=== PATIENT | female | born 1950 | race Caucasian/White ===

== ENCOUNTER 2020-01-22 13:11 | Outpatient (CLI) | payer MEDICARE, MEDICAID ==
[~2020-01-22 13:11] MED LIST: CEPH-571 PO; CEPH750C9 PO; ESCI20TA45 PO; HYDR-3686 PO; NAPR-1154 PO; QUET200T5 PO
[2020-01-22 13:47] LABS: HEMATOCRIT 40.1 % (35.0-45.0); WHITE BLOOD COUNT 1.9 X10'3 (4.5-11.0)
[2020-01-22 13:49] LABS: HEMOGLOBIN 13.1 g/dl (12.0-16.0); MEAN CORPUSCULAR HEMOGLOBIN 28.6 PG (27.0-31.0); MEAN CORPUSCULAR HGB CONC 32.7 g/dL (33.0-36.5); MEAN CORPUSCULAR VOLUME 87.5 FL (78-98); MEAN PLATELET VOLUME 8.4 FL (7.4-10.4); PLATELET COUNT 230 X10'3 (140-440); RED BLOOD COUNT 4.59 X10'6 (4.20-5.60); RED CELL DISTRIBUTION WIDTH 13.6 % (11.5-14.5)
[2020-01-22 14:15] LABS: TOTAL CELLS COUNTED 100
[2020-01-22 14:16] LABS: PLATELET ESTIMATE NORMAL
== END 2020-01-22 23:59 | disposition home or self-care (01) ==
LOC: LAB 13:11
PROVIDERS: ATTEND Psychiatry & Neurology Psychiatry
DX: F20.9 Schizophrenia, unspecified (principal); Z51.81 Encounter for therapeutic drug level monitoring
CPT/HCPCS: 36415; 85007; 85025

== ENCOUNTER 2022-10-24 22:39 | Emergency (ER) | payer MEDICARE, MEDICAID ==
[~2022-10-24] VITALS: Ht 160 cm; Wt 66.0 kg
[~2022-10-24 22:39] MED LIST changes: +ESCI20TA39 PO; -ESCI20TA45 PO
--- NOTE | 2022-10-25 00:47 | NUR ---
pt wellington upgraded to level 3 due to complaint.
[2022-10-25 00:59] LABS: BASOPHILS # (AUTO) 0.1 X10'3 (0-0.2); EOSINOPHILS # (AUTO) 0.1 X10'3 (0-0.9); EOSINOPHILS % (AUTO) 1.2 % (0-6); HEMOGLOBIN 12.3 g/dl (12.0-16.0); LYMPHOCYTES # (AUTO) 2.5 X10'3 (1.1-4.8); LYMPHOCYTES % (AUTO) 28.5 % (21-51); MEAN CORPUSCULAR HEMOGLOBIN 29.6 PG (27.0-31.0); MEAN CORPUSCULAR HGB CONC 33.1 g/dL (33.0-36.5); MEAN CORPUSCULAR VOLUME 89.3 FL (78-98); MEAN PLATELET VOLUME 7.8 FL (7.4-10.4); MONOCYTES # (AUTO) 0.8 X10'3 (0-0.9); MONOCYTES % (AUTO) 9.4 % (2-12); NEUTROPHILS # (AUTO) 5.2 X10'3 (1.8-7.7); NEUTROPHILS % (AUTO) 59.9 % (42-75); PLATELET COUNT 284 X10'3 (140-440); RED BLOOD COUNT 4.14 X10'6 (4.20-5.60); RED CELL DISTRIBUTION WIDTH 14.8 % (11.5-14.5); WHITE BLOOD COUNT 8.6 X10'3 (4.5-11.0)
[2022-10-25] MEDS ORDERED: NO HOME MEDS (01:01)
[2022-10-25 01:15] LABS: ALANINE AMINOTRANSFERASE 16 U/L (12-78); ALBUMIN 3.2 G/DL (3.4-5.0); ALBUMIN/GLOBULIN RATIO 0.8 (1.1-1.5); ALKALINE PHOSPHATASE 59 IU/L (46-116); ANION GAP 3 (8-16); ASPARTATE AMINO TRANSFERASE 14 U/L (10-37); BILIRUBIN,TOTAL 0.5 MG/DL (0.1-1.0); BLOOD UREA NITROGEN 13 MG/DL (7-18); BUN/CREATININE RATIO 11.3 (10.0-20.0); CALCIUM 9.1 MG/DL (8.5-10.1); CHLORIDE 101 MMOL/L (99-107); CREATININE 1.15 MG/DL (0.40-0.90); GLUCOSE 136 MG/DL (70-104); LIPASE 114 U/L (73-393); POTASSIUM 3.4 MMOL/L (3.5-5.1); SODIUM 137 MMOL/L (135-145); eGFR 47 ML/MIN
[2022-10-25] MEDS ORDERED: POTASSIUM BICARB 20meq eff tab 20 MEQ TABLET.EFF PO ONE (01:55)
[2022-10-25] MEDS ORDERED: loperamide 2mg capsule PO ONE (01:55)
[2022-10-25 02:25] LABS: COLOR,URINE AMBER (Yellow); GLUCOSE, URINE NEGATIVE (Neg); KETONES,URINE TRACE mg/dl (Neg); LEUKOCYTE ESTERASE ,URINE NEGATIVE (Neg); NITRITES, URINE NEGATIVE (Neg); OCCULT BLOOD,URINE TRACE-INTACT (Neg); PROTEIN,URINE NEGATIVE (Neg)
[2022-10-25 02:52] LABS: CLARITY,URINE SLIGHTLY CLOUDY (Clear); UA COLLECTION TYPE CLN CATCH MIDSTREAM
[2022-10-25 02:54] LABS: BACTERIA,URINE FEW /HPF (Neg); HYALINE CASTS 0-3 /LPF (NEGATIVE); RBC,URINE 0-2 /HPF (0-2); SQUAMOUS EPITHELIAL CELL,UR FEW /LPF (FEW); TRANSITIONAL EPI CELLS,URINE FEW /HPF; WBC,URINE 0-4 /HPF (0-4)
[2022-10-25] MEDS ORDERED: LOPE2CAP PO (03:28)
[2022-10-25 05:57] VITALS: BP 97/41
== END 2022-10-25 06:02 | disposition home or self-care (01) ==
LOC: ER 22:40
DX: R19.7 Diarrhea, unspecified (principal); I10 Essential (primary) hypertension; F31.9 Bipolar disorder, unspecified; F15.20 Other stimulant dependence, uncomplicated; Z88.0 Allergy status to penicillin; Z91.040 Latex allergy status
CPT/HCPCS: 36415; 74176; 80053; 81001; 83690; 84145; 85025; 99285

== ENCOUNTER 2022-10-27 12:48 | Emergency (ER) | payer MEDICARE, MEDICAID ==
[~2022-10-27 12:48] MED LIST changes: -CEPH-571 PO; -CEPH750C9 PO; -ESCI20TA39 PO; -HYDR-3686 PO; +LOPE2CAP PO; -NAPR-1154 PO; +NO HOME MEDS; -QUET200T5 PO
== END 2022-10-27 13:40 | disposition left against medical advice (07) ==
LOC: ER 12:48
DX: T73.0XXA Starvation, initial encounter (principal); Z53.21 Procedure and treatment not carried out due to patient leaving prior to being seen by health care provider; X58.XXXA Exposure to other specified factors, initial encounter

== ENCOUNTER 2022-11-18 14:00 | Emergency (ER) | payer MEDICARE, MEDICAID ==
[~2022-11-18] VITALS: Ht 160 cm; Wt 5.5 kg
[2022-11-18 14:06] VITALS: BP 101/57
== END 2022-11-18 18:27 | disposition home or self-care (01) ==
LOC: ER 14:00
DX: R19.7 Diarrhea, unspecified (principal); I10 Essential (primary) hypertension; F31.9 Bipolar disorder, unspecified; F20.9 Schizophrenia, unspecified; F15.10 Other stimulant abuse, uncomplicated; Z88.0 Allergy status to penicillin; Z91.040 Latex allergy status; Z79.899 Other long term (current) drug therapy
CPT/HCPCS: 99283

== ENCOUNTER 2022-11-19 19:30 | Emergency (ER) | payer MEDICARE, MEDICAID ==
[~2022-11-19] VITALS: Ht 160 cm; Wt 69.1 kg
[2022-11-19 20:30] LABS: BASOPHILS # (AUTO) 0.1 X10'3 (0-0.2); BASOPHILS % (AUTO) 0.8 % (0-1); EOSINOPHILS # (AUTO) 0.2 X10'3 (0-0.9); HEMATOCRIT 37.6 % (35.0-45.0); HEMOGLOBIN 12.4 g/dl (12.0-16.0); LYMPHOCYTES # (AUTO) 2.2 X10'3 (1.1-4.8); LYMPHOCYTES % (AUTO) 23.9 % (21-51); MEAN CORPUSCULAR HEMOGLOBIN 29.6 PG (27.0-31.0); MEAN CORPUSCULAR HGB CONC 33.1 g/dL (33.0-36.5); MEAN CORPUSCULAR VOLUME 89.6 FL (78-98); MEAN PLATELET VOLUME 7.8 FL (7.4-10.4); MONOCYTES # (AUTO) 0.8 X10'3 (0-0.9); MONOCYTES % (AUTO) 8.8 % (2-12); NEUTROPHILS # (AUTO) 5.9 X10'3 (1.8-7.7); NEUTROPHILS % (AUTO) 64.5 % (42-75); PLATELET COUNT 312 X10'3 (140-440); WHITE BLOOD COUNT 9.2 X10'3 (4.5-11.0)
[2022-11-19 20:51] LABS: ALANINE AMINOTRANSFERASE 19 U/L (12-78); ALBUMIN 3.2 G/DL (3.4-5.0); ALBUMIN/GLOBULIN RATIO 0.9 (1.1-1.5); ALKALINE PHOSPHATASE 57 IU/L (46-116); ANION GAP 9 (8-16); ASPARTATE AMINO TRANSFERASE 19 U/L (10-37); BILIRUBIN,TOTAL 0.4 MG/DL (0.1-1.0); BLOOD UREA NITROGEN 13 MG/DL (7-18); BUN/CREATININE RATIO 12.9 (10.0-20.0); CALCIUM 9.1 MG/DL (8.5-10.1); CHLORIDE 103 MMOL/L (99-107); CREATININE 1.01 MG/DL (0.40-0.90); GLUCOSE 146 MG/DL (70-104); POTASSIUM 3.2 MMOL/L (3.5-5.1); SODIUM 139 MMOL/L (135-145); TOTAL CARBON DIOXIDE 26.8 MMOL/L (24-32); TOTAL PROTEIN 6.9 G/DL (6.4-8.2); eGFR 54 ML/MIN
[2022-11-19 21:19] LABS: ETHANOL < 0.010 GM/DL (0.0-0.010)
[2022-11-20] MEDS ORDERED: potassium Cl 20 mEq SR tablet PO STA (00:30)
--- NOTE | 2022-11-20 00:47 | NUR ---
Patient ambulatory, steady gait from Main E.D. 14 to ED OF bed 25. No distress observed. Continue to monitor.
--- NOTE | 2022-11-20 02:17 | NUR ---
Patient continues to sleep. No distress observed. Continue to monitor.
--- NOTE | 2022-11-20 04:11 | NUR ---
Patient continues to sleep. No distress observed. Continue to monitor.
--- NOTE | 2022-11-20 06:07 | NUR ---
Patient gave a urine and is now sleeping in bed, No distress observed. Continue to monitor.
[2022-11-20 06:16] LABS: CLARITY,URINE SLIGHTLY CLOUDY (Clear); GLUCOSE, URINE NEGATIVE (Neg); KETONES,URINE TRACE mg/dl (Neg); LEUKOCYTE ESTERASE ,URINE NEGATIVE (Neg); NITRITES, URINE NEGATIVE (Neg); OCCULT BLOOD,URINE NEGATIVE (Neg); PROTEIN,URINE 30 mg/dl (Neg)
[2022-11-20 06:22] LABS: URINE AMPHETAMINE SCREEN NEGATIVE (Neg); URINE BARBITUATE SCREEN NEGATIVE (Neg); URINE BENZODIAZEPINES SCREEN POSITIVE (Neg); URINE CANNABINOID SCREEN POSITIVE (Neg); URINE COCAINE SCREEN NEGATIVE (Neg); URINE METHADONE SCREEN NEGATIVE (Neg); URINE OPIATE SCREEN NEGATIVE (Neg); URINE PHENCYCLIDINE SCREEN NEGATIVE (Neg)
[2022-11-20 06:23] LABS: COLOR,URINE DARK YELLOW (Yellow); UA COLLECTION TYPE CLN CATCH MIDSTREAM
[2022-11-20 06:32] LABS: CAL OXALATE CRYSTALS 3+ /HPF (NEGATIVE)
[2022-11-20 06:33] LABS: BACTERIA,URINE NONE SEEN /HPF (Neg); RBC,URINE NONE SEEN /HPF (0-2); SQUAMOUS EPITHELIAL CELL,UR FEW /LPF (FEW); WBC,URINE NONE SEEN /HPF (0-4)
--- NOTE | 2022-11-20 08:10 | NUR ---
Patient eating breakfast. No distress observed. Continue to monitor.
--- NOTE | 2022-11-20 10:03 | NUR ---
Patient sleeping. No distress observed. Continue to monitor.
--- NOTE | 2022-11-20 11:42 | NUR ---
Patient continues to sleep. No distress observed. Continue to monitor
--- NOTE | 2022-11-20 12:35 | NUR ---
Patient eating lunch. Patient is very malodorous. Patient asked for juice. No distress observed at this time. Continue to monitor.
--- NOTE | 2022-11-20 14:35 | NUR ---
Patient ambulatory to BR, steady gait. Patient wants to leave. RN explained to patient that she is on a hold. Continue to monitor.
--- NOTE | 2022-11-20 15:47 | NUR ---
Patient sleeping. No distress observed. Continue to monitor.
--- NOTE | 2022-11-20 19:41 | NUR ---
The patient is resting on her bed. She ate 100% of her dinner. She appears disheveled. She has no plans for food, intermediate or clothing. She did know she was in [place]. [facility] reported that she was diagnoised with lewy body dementia in 2013. In 2018 she scored 11/30 on the MOCHA. She has been homeless with her son in the [place] area and staying at the [facility] but her son had a surgery and went to Rehab which left the Patient to fend for herself. She reportedly is [facility] a [facility] the [facility]. In the past she has had invega IM but not currently. She has a prior tx for depression with psychotic features. The patient does not appear to be psychotic at this time.
--- NOTE | 2022-11-20 20:26 | NUR ---
The patient appears to be sleeping
--- NOTE | 2022-11-20 22:10 | NUR ---
The patient appears to be sleeping. She periodically is up to use the bathroom
--- NOTE | 2022-11-21 00:06 | NUR ---
The patient appears to be sleeping
--- NOTE | 2022-11-21 04:06 | NUR ---
The patient appears to be sleeping
--- NOTE | 2022-11-21 05:26 | NUR ---
The patient is currently resting on her bed
--- NOTE | 2022-11-21 06:53 | NUR ---
Patient sleeping on her left side. No distress observed. Continue to monitor.
--- NOTE | 2022-11-21 08:22 | NUR ---
Patient eating breakfast. No distress observed. Continue to monitor.
--- NOTE | 2022-11-21 10:11 | NUR ---
Patient ambulatory to BR, steaady gait. No distress observed. Continue to monitor.
--- NOTE | 2022-11-21 11:45 | NUR ---
Patient came up to nurse's station and asked "When can I leave?" RN explained that she was on a hold and whe won't be able to leave for several days. Patient was not happy but went back to her bed. Continue to monitor.
--- NOTE | 2022-11-21 12:26 | NUR ---
RN gave patient her lunch tray and patient asked to leave again. RN again advised patient that she is on a hold and will be with us for a while. Continue to monitor.
--- NOTE | 2022-11-21 14:17 | NUR ---
Patient sleeping. No distress observed. Continue to monitor.
--- NOTE | 2022-11-21 16:25 | NUR ---
Patient laying down and appears to be sleeping. No distress observed. Continue to monitor.
--- NOTE | 2022-11-21 17:24 | NUR ---
Patient came up to RN and asked what she has to do to get out of here. RN explained she is on a hold and will be here for several more days. Patient asked what would happen if I walked out if 15 minutes. RN explained that a vice squad police officer would go find her and bring her back. Patient walked back to her bed. Continue to monitor.
--- NOTE | 2022-11-21 19:05 | NUR ---
The patient was resting on her bed. She is very disheveled. She ate 100% of her dinner. She is wanting to leave but has absolutely no plan for food longterm or clothing. When asked about how she would obtain food she replied, "I don't know. I don't worry about things like that" She reports voices telling her to "be good" She stated that she feels unsafe and that her life is in danger. She feels that the ER will close. She was told that she is on a 5150 hold. She presents as severely gravely disabled. Discussed with SHAILA Pickett and orders received.
[2022-11-21] MEDS ORDERED: risperiDONE 0.5mg tablet PO ONE (19:10)
[2022-11-21] MEDS: QUEtiapine 25mg tablet PO PRN (19:18)
--- NOTE | 2022-11-21 20:39 | NUR ---
The patient appears to be sleeping
--- NOTE | 2022-11-21 22:51 | NUR ---
The patient appears to be sleeping
--- NOTE | 2022-11-22 00:07 | NUR ---
The patient appears to be sleeping
--- NOTE | 2022-11-22 01:25 | NUR ---
The patient appears to be sleeping
--- NOTE | 2022-11-22 03:28 | NUR ---
The patient appears to be sleeping
--- NOTE | 2022-11-22 05:08 | NUR ---
The patient appears to be sleeping
--- NOTE | 2022-11-22 07:06 | NUR ---
Patient appears to be sleeping. No distress observed. Continue to monitor.
--- NOTE | 2022-11-22 08:27 | NUR ---
Patient eating breakfast. No distress observed. Continue to monitor.
[2022-11-22] MEDS: risperiDONE 2mg tablet PO SCH ×2 (09:04→19:20)
[2022-11-22] MEDS: QUEtiapine 25mg tablet PO PRN ×2 (09:04→19:19)
--- NOTE | 2022-11-22 10:16 | NUR ---
Patient sleeping. No distress observed. Continue to monitor.
--- NOTE | 2022-11-22 12:22 | NUR ---
Patient eating lunch. No distress observed. Continue to monitor.
--- NOTE | 2022-11-22 14:23 | NUR ---
Pt sitting up on her bed appears to be eating. No distress noted.
--- NOTE | 2022-11-22 15:00 | NUR ---
TOOK PT TO SHOWER IN THE WHEELCHAIR AND CHANGED HER LINEN. PT LOVED HER SHOWER.
--- NOTE | 2022-11-22 16:03 | NUR ---
RN speaking to patient because [facility] that she has a stomach ache and is having diarrhea. RN asked patient if she had a stomach ache and patient responded "I want a sandwich." RN asked patient not to flush next time she goes to the BR. Patient verbalized understanding.
--- NOTE | 2022-11-22 16:47 | NUR ---
RN walked to BR and RN reminded patient not to flush. RN checked the toilet which had formed stool. No diarrhea. Continue to monitor.
--- NOTE | 2022-11-22 17:22 | NUR ---
Patient eating dinner. No distress observed. Continue to monitor.
--- NOTE | 2022-11-22 19:56 | NUR ---
One to one with the patient to assess thought process. When asked why she was here she replied my eye and my stomach" She contines to report voices telling her what to do. She was asked what her plan was if she left the hospital she only replied, "the streets" She stated she did not know what she would do to obtain food. She came up to the station and asked. "Do I need to bounce my bed before I leave?" and when asked what she meant she replied if she needed to move her bed up and down. She was told that she would be here until a place was found for her and she insisted that no one was going to help her. She did state that she felt safe here. She is not really socializing with anyone and just lays on her bed.
--- NOTE | 2022-11-22 20:09 | NUR ---
The patient standing at the end of her bed shaking the foot board and anouncing that she is leaving. She was reminded she had no where to go or ability to get food and she stated, "That is why I need to go to the street so I can figure it out.
--- NOTE | 2022-11-22 21:21 | NUR ---
The patient appears to be sleeping
--- NOTE | 2022-11-22 23:12 | NUR ---
The patient appears to be sleeping
--- NOTE | 2022-11-23 01:02 | NUR ---
The patient appears to be sleeping
--- NOTE | 2022-11-23 02:38 | NUR ---
The patient appears to be sleeping
--- NOTE | 2022-11-23 03:36 | NUR ---
The patient is awake and reporting that she is hungry. Snack given
--- NOTE | 2022-11-23 05:05 | NUR ---
The patient appears to be sleeping
--- NOTE | 2022-11-23 06:30 | NUR ---
Received pt. sleeping in bed, she awoke to use the bathroom and was able to do so independently, then returned to bed.
[2022-11-23] MEDS ORDERED: risperiDONE 0.5mg tablet PO SCH (08:24)
--- NOTE | 2022-11-23 08:30 | NUR ---
Pt. is sitting up in bed eating at this time.
--- NOTE | 2022-11-23 09:00 | NUR ---
Pt. was compliant with her morning medications. She is A&O x3, however when questioned regarding why she is here stated in a disorganized manner, "Because of my stomach, my eye, and my feet." Pt. is endorsing thoughts of S/I, however denies any current plan or any past history of a suicide attempts. She appears to be depressed regarding her current situaion. When questioned regarding any A/V/ARTEAGA, pt. reported A/H which are not command in nature which, "Just talk." Pt. also reported anxiety, and PRN Seroquel was administered, will continue to monitor pt. closely.
[2022-11-23] MEDS: risperiDONE 0.5mg tablet PO SCH ×2 (09:06→19:53)
[2022-11-23] MEDS: QUEtiapine 25mg tablet PO PRN ×2 (09:06→17:17)
--- NOTE | 2022-11-23 10:31 | NUR ---
Breaking RN. Pt. is asleep on left side in bed. Respirations 16, even and unlabored.
--- NOTE | 2022-11-23 10:49 | NUR ---
Pt. appears to be sleeping at this time, head of bed is elevated, rr are even and unlabored.
--- NOTE | 2022-11-23 12:27 | NUR ---
Pt. is sitting up eating lunch at this time.
--- NOTE | 2022-11-23 14:28 | NUR ---
Pt. up to use the bathroom and afterwards approached the nurse's station stating, "I can't get out of here." This junior underwriter provided active listening and positive encouragement to pt. regarding her being safe here and we are going to help her. Pt. appeared to be confused and then stated, "I don't have a debit card." She was assured she didn't need one here. Pt. then returned back to bed, will continue to monitor pt. closely.
--- NOTE | 2022-11-23 16:40 | NUR ---
Pt. continues to sleep at this time, head of bed elevated, rise and fall of chest noted.
--- NOTE | 2022-11-23 17:10 | NUR ---
Pt. awoke and came to the nurse's station demanding to leave, she was unable to be verbally redirected by staff. Pt. had an elopement attempt out the back curtain exit. Security was called and pt. was physically escorted back to her room. PRN Seroquel was administered, however pt. remained argumentative with staff. Will continue to monitor pt. closely. Pt. was provided with a snack and coffee. She is sitting on her bed at this time, but is non-cooperative with vital signs r/t agitation. Will attempt after medication has taken effect and endorse to Noc shift.
--- NOTE | 2022-11-23 18:35 | NUR ---
The patient is resting on her bed.
--- NOTE | 2022-11-23 18:44 | NUR ---
One to one with the patient who continues to report AH. She stated the voices tell her all sorts of things was guarded when asked more details on what the voices were telling her. She denies that she has thoughts to harm herself or others. She is unable to verbalize a plan for food, snf or clothing. She was reminded that she is going to stay here until a placement can be found and she replied, "that's not what I heard" She admits the voices are telling her to leave and that she can't stay here. She was told that was not true and she seemed to accept that. She knew she was at [facility] and that the month was November.
--- NOTE | 2022-11-23 19:58 | NUR ---
The patient is sitting up and having a snack. She took her evening medications.
--- NOTE | 2022-11-23 20:59 | NUR ---
The patient appears to be sleeping
--- NOTE | 2022-11-23 23:07 | NUR ---
The pathient appears to be sleeping
--- NOTE | 2022-11-24 01:05 | NUR ---
The patient is up to use the bathroom.
--- NOTE | 2022-11-24 03:04 | NUR ---
The patient appears to be sleeping
--- NOTE | 2022-11-24 05:03 | NUR ---
The patient up to use the bathroom
--- NOTE | 2022-11-24 07:00 | NUR ---
Pt resting comfortably with eyes closed, rr even and unlabored.
[2022-11-24] MEDS: risperiDONE 0.5mg tablet PO SCH ×2 (09:10→19:17)
--- NOTE | 2022-11-24 09:13 | NUR ---
Pt sleeping when credit underwriter approached. Pt ate 100% of her breakfast. Pt was compliant with medication and care. Reports LBM this morning loose stool. Pt denies SI/HI. When asked if she hears voices pt states "nah, just one voice." Good or bad "it can be good or bad." Pt reports her mood "I'm sleepy."
--- NOTE | 2022-11-24 11:00 | NUR ---
Pt up to the bathroom, returns to bed to sleep.
--- NOTE | 2022-11-24 13:00 | NUR ---
Pt ate 100% of her lunch and another tray. Pt continues to present fatiged. Pt not responding to internal stimuli "just tired."
--- NOTE | 2022-11-24 16:00 | NUR ---
Pt resting comfortably on left side. Pt able to self position.
--- NOTE | 2022-11-24 19:09 | NUR ---
The patient is laying on her bed with her eyes closed for the majority of the time and it is unclear if she is awake or sleeping. She gives minimal replies to assessment questions. Her affect is flat and she does not give any eye contact. She makes to attempt to socialize with others. When asked she stated she did not feel well both physically and mentally. She reports continued voices telling her to leave the ER. She reports that she feels depressed. She has poor hygiene and makes no attempt at self care. She is toileting independently.
[2022-11-24] MEDS: QUEtiapine 25mg tablet PO PRN (19:17)
--- NOTE | 2022-11-24 20:26 | NUR ---
The patient appears to be sleeping
--- NOTE | 2022-11-24 22:32 | NUR ---
The patient appears to be sleeping
--- NOTE | 2022-11-25 00:01 | NUR ---
The patient appears to be sleeping
--- NOTE | 2022-11-25 01:59 | NUR ---
The patient appears to be sleeping
--- NOTE | 2022-11-25 04:02 | NUR ---
The patient appears to be sleeping
--- NOTE | 2022-11-25 05:18 | NUR ---
The patient appears to be sleeping
--- NOTE | 2022-11-25 08:00 | NUR ---
Patient awake, AOx2. Some confusion noted. Patient denies SI/HI at this time. She does not endorse AVH. Patient compliant with scheduled medication and assessment. Sitting up on the edge of bed eating breakfast at this time.
[2022-11-25] MEDS: risperiDONE 0.5mg tablet PO SCH ×2 (08:17→19:11)
--- NOTE | 2022-11-25 08:51 | NUR ---
JUST GOT BACK FROM TAKING PT TO SHOWER AND PT AMBULATED THERE JUST FINE. PT IS NOW USING MOUTHWASH AND LINENS WERE CHANGED.
--- NOTE | 2022-11-25 09:00 | NUR ---
Shower encouraged and accepted. Patient showered/linen changed. Oral care encouraged and accepted. Patient performed independently.
--- NOTE | 2022-11-25 11:00 | NUR ---
Pt resting comfortably with eyes closed, she is easily awaken. Pt asked "I want to get out of here." When told it was over 105 degrees pt responded "can I stay here." Pt describes her mood as "tired and achy." When asked about her diagnosis she said "schizophrenia," but then said "I don't know." Pt doesn't remember why she is here at [facility], but then remembered she was running around the community naked. When asked why pt responded "I don't know." Pt reports "one" voice she is hearing.
--- NOTE | 2022-11-25 13:24 | NUR ---
Pt is up to the bathroom, gait steady. Pt was ordered an extrat tray, pt reports being hungry.
--- NOTE | 2022-11-25 14:00 | NUR ---
SENT TUBE HANDLER CONSULT. Addendum: 11/25/22 at 1638 by AJ Placed order and sent page.
--- NOTE | 2022-11-25 16:15 | NUR ---
Patient was moved to bed #21. Pt compliant and calm.
--- NOTE | 2022-11-25 16:53 | NUR ---
PT'S 5150 WAS RESCINDED ON 11/22/22 BY [facility]. Per report pt does not meet criteria for 5150 hold. Pt meets criteria for GD associated with her increasing dementia symptoms.
--- NOTE | 2022-11-25 17:29 | NUR ---
Pt states "I'm having all kinds of bad feelings." "Anxious, depressed." "I want to tear up everything." Pt then asked if she could have a snack.
[2022-11-25] MEDS: QUEtiapine 25mg tablet PO PRN (17:35)
--- NOTE | 2022-11-25 17:41 | NUR ---
PRN SEROQUEL ADMINISTERED.
--- NOTE | 2022-11-25 18:30 | NUR ---
Patient received sitting in her room quietly watching television. No s/s of distress noted. Will continue to monitor.
--- NOTE | 2022-11-25 19:00 | NUR ---
Pt was receptive to 1:1 assessment and scheduled medication. She requested a Nicotine patch which was provided to her per MD order. She reported LBM this morning with no c/o constipation or diarrhea. Pt denies SI/HI, AH and VH at this time. She is calm and cooperative. Pt noted resting in her room at this time.
[2022-11-25] MEDS ORDERED: nicotine 14mg patch - 24hr TD ONE (19:05)
--- NOTE | 2022-11-25 19:46 | NUR ---
Patient had been sleeping quietly in bed when she abruptly awoke and began yelling. Patient stating that she "needs to break down the bed" and is "leaving in 15 minutes". Staff attempted to orient to reality and provide distraction/ comfort measures to help patient calm down. Pt continues to believe that she needs to leave the unit. One time order for PO Seroquel obtained from . Will continue to monitor.
[2022-11-25] MEDS ORDERED: QUEtiapine 25mg tablet PO ONE (19:50)
--- NOTE | 2022-11-25 20:07 | NUR ---
Pt is observed sleeping on her right side in bed with no s/s of distress. Respirations even, unlabored. Will continue to monitor.
--- NOTE | 2022-11-25 20:26 | NUR ---
Patient awoke and ambulated to the restroom independently. Pt asked this field underwriter if she could leave. This field underwriter encouraged pt that this is a safe place for her to stay. She reported that she would rather "go to the streets". Pt is noted sitting in her room at this time. Will continue to monitor.
--- NOTE | 2022-11-25 22:38 | NUR ---
Pt is observed sleeping supine in her bed at this time. Equal rise and fall of chest. No s/s of distress. Will continue to monitor.
--- NOTE | 2022-11-25 23:56 | NUR ---
The patient appears to be sleeping
--- NOTE | 2022-11-26 02:02 | NUR ---
Pt briefly awake to use restroom. PT concerned about paying for her stay. Staff reinforced [facility] will be taking responsibilty.Pt resumed sleeping. No distress noted.
--- NOTE | 2022-11-26 03:20 | NUR ---
Pt appears to be sleeping, eyes closed, breathing even and unlabored, no distress.
--- NOTE | 2022-11-26 05:06 | NUR ---
Pt continues to be sleep, eyes closed, breathing even and unlabored, lying supine, HOB elevated semi fowlers, no distress noted.
--- NOTE | 2022-11-26 07:00 | NUR ---
Patient resting comfortably on right side, rr even and unlabored.
--- NOTE | 2022-11-26 09:00 | NUR ---
pt compliant to AM medication regimen. pt lying in bed with eyes closed. no obvious signs of distress. pt rr even and unlabored.
[2022-11-26] MEDS ORDERED: QUEtiapine 25mg tablet PO SCH (09:10)
[2022-11-26] MEDS: nicotine 14mg patch - 24hr TD SCH (09:11)
[2022-11-26] MEDS: risperiDONE 0.5mg tablet PO SCH ×2 (09:12→20:04)
[2022-11-26] MEDS: QUEtiapine 25mg tablet PO PRN (09:13)
--- NOTE | 2022-11-26 11:23 | NUR ---
pt continues to lay in bed supine with eyes closed. RR even and unlabored.
--- NOTE | 2022-11-26 12:21 | NUR ---
Pt sitting on side of bed eating lunch. Pt is a rapid eater and required multiple requests to slow down. Pt's lungs clear with ausculation.
--- NOTE | 2022-11-26 12:53 | NUR ---
Patient having difficulty with chewing her food. Pt is anodontia and eats fast. Received order for swallow study.
--- NOTE | 2022-11-26 13:43 | NUR ---
pt observed in bed with eyes closed, RR even and unlabored. no obvious signs of distress.
--- NOTE | 2022-11-26 15:13 | NUR ---
pt continues to sleep with eyes closed, and favoring the left side. pt does not seem to be in any obvious signs of distress. RR even and unlabored.
--- NOTE | 2022-11-26 17:15 | NUR ---
pt approached nurse station requesting a snack. pt back in bed continuing to favor her left side.
--- NOTE | 2022-11-26 18:11 | NUR ---
pt ate dinner with some complicationg swallowing. pt experienced frequent coughing during meal. pt finished meal and layed down supine position. RR even and unlabored, no obvious signs of distress.
--- NOTE | 2022-11-26 18:53 | NUR ---
The patient is resting on her bed. She was pleasant during the assessment. She stated that she has been hearing voices to mess up the bed but stated she won't do it.
[2022-11-26] MEDS: QUEtiapine 25mg tablet PO SCH (20:04)
--- NOTE | 2022-11-26 20:11 | NUR ---
The patient is resting on her bed.
--- NOTE | 2022-11-26 21:57 | NUR ---
The patient appears to be sleeping
--- NOTE | 2022-11-26 23:21 | NUR ---
The patient appears to be sleeping
--- NOTE | 2022-11-27 01:08 | NUR ---
The patient appears to be sleeping
--- NOTE | 2022-11-27 02:54 | NUR ---
The patient appears to be sleeping
--- NOTE | 2022-11-27 05:05 | NUR ---
The patient awake to use the bathroom and on her way back to bed she asked if it was okay to start breaking the beds. She was redirectable and reminded not to listen to the voices.
--- NOTE | 2022-11-27 06:41 | NUR ---
Patient supine and appears to be sleeping. No distress observed. Continue to monitor.
[2022-11-27] MEDS: risperiDONE 0.5mg tablet PO SCH ×2 (08:20→20:07)
--- NOTE | 2022-11-27 08:20 | NUR ---
Patient eating breakfast. No distress observed. Continue to monitor.
[2022-11-27] MEDS: nicotine 14mg patch - 24hr TD SCH (08:21)
[2022-11-27] MEDS: QUEtiapine 25mg tablet PO SCH ×3 (08:21→20:08)
--- NOTE | 2022-11-27 08:50 | NUR ---
Speech therapist evaluating patient. Patient has not problem swallowing. Continue to monitor.
--- NOTE | 2022-11-27 11:03 | NUR ---
Patient sleeping. No distress observed. Patient moved to bed 25 in the bed. Continue to monitor.
--- NOTE | 2022-11-27 12:36 | NUR ---
Patient eating lunch. No distress observed. Continue to monitor.
--- NOTE | 2022-11-27 14:31 | NUR ---
Pt resting on her bed appears to be sleeping. No distress noted.
--- NOTE | 2022-11-27 15:04 | NUR ---
Patient sleeping. No distress observed. Continue to monitor.
--- NOTE | 2022-11-27 16:55 | NUR ---
RN gave patient a snack of milk and chuck crackers. No distress observed. Continue to monitor
--- NOTE | 2022-11-27 19:27 | NUR ---
The patient is resting on her bed. She reports voices telling her to "break down beds" she reports she feels depressed and having suicidal thoughts to "choke myself"
--- NOTE | 2022-11-27 20:30 | NUR ---
The patient appears to be sleeping
--- NOTE | 2022-11-27 21:13 | NUR ---
The patient appears to be sleeping
--- NOTE | 2022-11-27 23:02 | NUR ---
The patient appears to be sleeping
--- NOTE | 2022-11-28 01:04 | NUR ---
The patient appears to be sleeping
--- NOTE | 2022-11-28 02:47 | NUR ---
The patient appears to be sleeping
--- NOTE | 2022-11-28 05:13 | NUR ---
The patient appeared to have slept well during the night
--- NOTE | 2022-11-28 06:53 | NUR ---
The patient appears to be sleeping
--- NOTE | 2022-11-28 07:36 | NUR ---
Patient sleeping on left side. Respirations are even and nonlabored.
--- NOTE | 2022-11-28 08:55 | NUR ---
Patient continues to sleep in bed. No s/s of distress.
[2022-11-28] MEDS: QUEtiapine 25mg tablet PO SCH ×2 (10:59→13:00)
[2022-11-28] MEDS: nicotine 14mg patch - 24hr TD SCH (11:00)
[2022-11-28] MEDS: risperiDONE 0.5mg tablet PO SCH ×2 (11:00→19:05)
--- NOTE | 2022-11-28 11:44 | NUR ---
Patient awoke and took her medications without incident. Patient ate her breakfast and is back sleeping at this time. Patient is disheveled and has poor hygeine.
--- NOTE | 2022-11-28 14:55 | NUR ---
Patient up to the bathroom, then back to bed. Patient has been sleeping all day except for meal times. Held 13:00 Seroquel for oversedation.
--- NOTE | 2022-11-28 16:46 | NUR ---
Patient continues to sleep in bed. Respirations are even and nonlabored.
--- NOTE | 2022-11-28 18:06 | NUR ---
The patient has been somulent during the day. Discussed with Dr. Donohue and TID secheduled Seroquel discontinued.
--- NOTE | 2022-11-28 18:47 | NUR ---
The patient resting on her bed. She is complaining of feeling too tired. She stated that she is hearing voices "all the time. Telling me to tear down beds. Just things like thought. She stated her mood is good.
--- NOTE | 2022-11-28 19:17 | NUR ---
The patient resting on her bed. She was made aware of medication changes.
--- NOTE | 2022-11-28 20:07 | NUR ---
The patient appears to be sleeping
--- NOTE | 2022-11-28 21:50 | NUR ---
The patient appears to be sleeping
--- NOTE | 2022-11-28 23:01 | NUR ---
The patient appears to be sleeping
--- NOTE | 2022-11-29 01:02 | NUR ---
The patient appears to be sleeping
--- NOTE | 2022-11-29 03:02 | NUR ---
The patient appears to be sleeping
--- NOTE | 2022-11-29 05:26 | NUR ---
The patient appeared to have slept well during the night.
--- NOTE | 2022-11-29 06:22 | NUR ---
Patient sleeping. No distress observed. Continue to monitor.
--- NOTE | 2022-11-29 08:27 | NUR ---
Patient eating breakfast. No distress observed. Continue to monitor.
[2022-11-29] MEDS: risperiDONE 0.5mg tablet PO SCH ×2 (08:33→19:36)
[2022-11-29] MEDS: nicotine 14mg patch - 24hr TD SCH (08:34)
--- NOTE | 2022-11-29 10:24 | NUR ---
Patient sleeping. No distress observed. Continue to monitor.
--- NOTE | 2022-11-29 12:19 | NUR ---
Patient eating lunch. No distress observed. Continue to monitor.
--- NOTE | 2022-11-29 14:23 | NUR ---
Patient sleeping. No distress observed. Continue to monitor.
--- NOTE | 2022-11-29 16:19 | NUR ---
Patient sleeping. No distress observed. Continue to monitor.
--- NOTE | 2022-11-29 19:05 | NUR ---
The patient is resting on her bed but awake. She did state she felt less tired today. She stated that she continues to hear voices that are telling her to leave the hospital but agrees not to listen to the voices.
--- NOTE | 2022-11-29 20:11 | NUR ---
The patient is resting on her bed but is awake
[2022-11-29] MEDS: QUEtiapine 25mg tablet PO PRN (20:38)
--- NOTE | 2022-11-29 20:40 | NUR ---
The patient is anxious and nervous about being in the ER. She has no insight. She is hearing voices telling her to leave. PRN Seroquel given.
--- NOTE | 2022-11-29 21:42 | NUR ---
The patient appears to be sleeping
--- NOTE | 2022-11-29 23:02 | NUR ---
The patient appears to be sleeping
--- NOTE | 2022-11-30 01:09 | NUR ---
The patient appears to be sleeping
--- NOTE | 2022-11-30 03:02 | NUR ---
The patient appears to be sleeping
--- NOTE | 2022-11-30 05:09 | NUR ---
The patient appears to be sleeping
--- NOTE | 2022-11-30 06:32 | NUR ---
pt. asleep in supine position.
[2022-11-30] MEDS: nicotine 14mg patch - 24hr TD SCH (08:00)
--- NOTE | 2022-11-30 08:00 | NUR ---
Pt. asleep on right side. Pt. in no apparent distress.
[2022-11-30] MEDS: risperiDONE 0.5mg tablet PO SCH ×2 (08:50→20:12)
--- NOTE | 2022-11-30 10:00 | NUR ---
Pt. awoke and ate breakfast. 1:1 done at bedside, pt. reports SI without a plan. Pt. reports hearing voices that tell her not to shower and that she should break her bed. Pt. A&O to self and date. Pt. got up and used the toilet. Pt. reports normal BM yesterday. Pt. encouraged to shower but refused.
--- NOTE | 2022-11-30 11:49 | NUR ---
pt. c/o increased mucous production. Pt. has productive cough with clear mucous. Lungs sounds clear bilaterally. Provider notified and ordered Guanfacine PRN. Addendum: 11/30/22 at 1155 by SOREN Correction, medication is Guaifenesin.
[2022-11-30] MEDS ORDERED: guaiFENesin 200 MG/10 ML oral syrup UD cup PO PRN (11:55)
--- NOTE | 2022-11-30 14:00 | NUR ---
Pt. awoke for lunch, ate 100% and went back to sleep.
--- NOTE | 2022-11-30 16:00 | NUR ---
Pt. asleep on right side. Respirations 18, even and unlabored. Pt. in no apparent distress.
--- NOTE | 2022-11-30 18:34 | NUR ---
Pt was sleeping at change of shift. Pt woke at 1830 to check the time and use the bathroom. Pt is pleasant and smiling. Returned to bed.
[2022-11-30] MEDS: QUEtiapine 25mg tablet PO PRN (20:12)
--- NOTE | 2022-11-30 20:12 | NUR ---
Pt is in bed resting, nicotine patch was removed. Pt took HS meds and asked to be covered up. "Am I going to sleep tonight, I had trouble last night." Provided medication education, pt states "Ok"
[2022-11-30] MEDS ORDERED: QUEtiapine 25mg tablet PO ONE (22:15)
--- NOTE | 2022-11-30 22:19 | NUR ---
Pt woke to use the bathroom c/o not being able to sleep. Provider ordered one time order of Seroquel 50mg.
--- NOTE | 2022-12-01 00:48 | NUR ---
pt laying on her left side asleep rr even and unlabored
--- NOTE | 2022-12-01 02:09 | NUR ---
Pt is asleep. appears to be resting comfortably rr 14
--- NOTE | 2022-12-01 02:40 | NUR ---
pt up to use the bathroom and returned to bed. Pt resting with eyes closed
--- NOTE | 2022-12-01 04:30 | NUR ---
pt is asleep rr even and unlabored
--- NOTE | 2022-12-01 06:43 | NUR ---
Patient sleeping supine. No distress observed. Continue to monitor.
--- NOTE | 2022-12-01 08:20 | NUR ---
Patient sitting up in bed and eating breakfast. No distress observed. Continue to monitor.
[2022-12-01] MEDS: risperiDONE 0.5mg tablet PO SCH ×2 (08:53→20:31)
[2022-12-01] MEDS: nicotine 14mg patch - 24hr TD SCH (08:53)
[2022-12-01] MEDS ORDERED: QUEtiapine 25mg tablet PO ONE (09:00)
--- NOTE | 2022-12-01 10:11 | NUR ---
Patient sleeping in bed. No distress observed. Continue to monitor.
--- NOTE | 2022-12-01 12:09 | NUR ---
Patient sitting up in bed and eating breakfast. No distress observed. Continue to monitor.
--- NOTE | 2022-12-01 14:09 | NUR ---
Patient sleeping. No distress observed. Continue to monitor.
--- NOTE | 2022-12-01 16:03 | NUR ---
Patient up for a snack. No distress observed. Continue to monitor.
[2022-12-01] MEDS: QUEtiapine 25mg tablet PO PRN (20:31)
--- NOTE | 2022-12-01 20:41 | NUR ---
Took HS meds and appears to have gone back to sleep. Pt has been up independantly to BR x2. Wakes up easily for meds, is pleasant and cooperative. Oriented to person knows she is in the hospital but confused as to situation.
--- NOTE | 2022-12-01 22:48 | NUR ---
Sleeping resp even and unlabored.
--- NOTE | 2022-12-02 01:08 | NUR ---
Pt continues to sleep resp even and unlabored.
--- NOTE | 2022-12-02 03:04 | NUR ---
Up to BR independantly x1 sleeping at this time.
--- NOTE | 2022-12-02 05:09 | NUR ---
Sleeping resp even and unlabored.
--- NOTE | 2022-12-02 06:46 | NUR ---
Patient sleeping. No distress observed. Continue to monitor.
--- NOTE | 2022-12-02 08:14 | NUR ---
Patient eating breakfast. No distress observed. Continue to monitor.
[2022-12-02] MEDS: nicotine 14mg patch - 24hr TD SCH (08:41)
[2022-12-02] MEDS: risperiDONE 0.5mg tablet PO SCH ×2 (08:41→19:41)
--- NOTE | 2022-12-02 10:05 | NUR ---
Patient sleeping. No distress observed. Continue to monitor.
--- NOTE | 2022-12-02 12:09 | NUR ---
Patient eating lunch. No distress observed. Continue to monitor.
--- NOTE | 2022-12-02 14:05 | NUR ---
Patient ambulatory to BR, steady gait. No distress observed. Continue to monitor.
--- NOTE | 2022-12-02 16:10 | NUR ---
Patient continues to sleep. No distress observed. Continue to monitor.
[2022-12-02] MEDS ORDERED: acetaminophen 325mg tablet PO ONE (18:45)
--- NOTE | 2022-12-02 19:33 | NUR ---
The patient has been resting on her bed. She ate 100% of her dinner. She is very disheveled and she makes no attempt to do self care or hygiene. She stated she did not know where she would go if she left the hospital and she did not have any way to pay for food. She reports that she is hearing voices telling her things about her family
--- NOTE | 2022-12-02 20:00 | NUR ---
The patient is resting on her bed.
[2022-12-02] MEDS: QUEtiapine 25mg tablet PO PRN (20:52)
--- NOTE | 2022-12-02 21:48 | NUR ---
The patient appears to be sleeping.
--- NOTE | 2022-12-02 21:54 | NUR ---
The patient came up to the nursing station and stated, "I don't know what to do with my head" She stated that she is hearing voices telling her to scream and break beds but stated she did not want to do that. She asked if she could have hudson to help her sleep and discussed patient with Dr. Ly and orders received.
[2022-12-02] MEDS ORDERED: QUEtiapine 25mg tablet PO ONE (21:55)
--- NOTE | 2022-12-02 23:04 | NUR ---
The patient is resting on her bed
--- NOTE | 2022-12-03 01:05 | NUR ---
The patient appears to be sleeping
--- NOTE | 2022-12-03 02:59 | NUR ---
The patient appears to be sleeping
--- NOTE | 2022-12-03 05:15 | NUR ---
The patient appears to be sleeping
[2022-12-03 06:26] VITALS: BP 126/65
--- NOTE | 2022-12-03 06:37 | NUR ---
Patient sleeping. No distress observed. Continue to monitor.
--- NOTE | 2022-12-03 08:21 | NUR ---
Patient sitting up and eating breakfast. No distress observed. Continue to monitor.
[2022-12-03] MEDS: risperiDONE 0.5mg tablet PO SCH (08:56)
[2022-12-03] MEDS: nicotine 14mg patch - 24hr TD SCH (08:56)
--- NOTE | 2022-12-03 10:17 | NUR ---
RN spoke to patient and asked her if she wanted the T.V. to help her stay awake during the day. Patient stated she did not. Continue to monitor.
--- NOTE | 2022-12-03 12:03 | NUR ---
Patient eating lunch. No distress observed. Continue to monitor.
--- NOTE | 2022-12-03 13:55 | NUR ---
Patient sleeping. No distress observed. Continue to monitor.
--- NOTE | 2022-12-03 16:10 | NUR ---
Patient is supposed to go to the [facility] per foster care social worker. RN sent social science professor a page since SW needs to advise doctor so he can approve/disapprove and discharge patient. Continue to monitor.
--- NOTE | 2022-12-03 16:40 | NUR ---
RN called [employer]er since no answer to page. She stated she was on her way down to speak with Dr. Islas. Continue to monitor.
--- NOTE | 2022-12-03 16:45 | NUR ---
RN raised objection to discharge to the [facility]. RN advised Irma, she does not believe patient is able to take care of herself. And there is triple digit heat coming up.
== END 2022-12-03 17:30 | disposition home or self-care (01) ==
LOC: ER 19:30
DX: F79 Unspecified intellectual disabilities (principal); Z20.822 Contact with and (suspected) exposure to COVID-19; I10 Essential (primary) hypertension; F03.90 Unspecified dementia, unspecified severity, without behavioral disturbance, psychotic disturbance, mood disturbance, and anxiety; F31.9 Bipolar disorder, unspecified; F20.9 Schizophrenia, unspecified; F15.10 Other stimulant abuse, uncomplicated; Z88.0 Allergy status to penicillin; Z91.040 Latex allergy status; Z79.899 Other long term (current) drug therapy
CPT/HCPCS: 36415; 71045; 80053; 80305; 80320; 81001; 84443; 85025; 87811; 99285

== ENCOUNTER 2024-04-19 15:41 | Observation (INO) | payer MEDICARE, MEDICAID ==
[~2024-04-19] VITALS: Ht 160 cm; Wt 70.8 kg
[~2024-04-19 15:41] MED LIST changes: -LOPE2CAP PO
[2024-04-19 16:11] LABS: BASOPHILS # (AUTO) 0.1 X10'3 (0-0.2); BASOPHILS % (AUTO) 1.1 % (0-1); EOSINOPHILS # (AUTO) 0.1 X10'3 (0-0.9); EOSINOPHILS % (AUTO) 1.1 % (0-6); HEMATOCRIT 35.9 % (35.0-45.0); HEMOGLOBIN 11.7 g/dl (12.0-16.0); LYMPHOCYTES # (AUTO) 2.2 X10'3 (1.1-4.8); LYMPHOCYTES % (AUTO) 25.2 % (21-51); MEAN CORPUSCULAR HEMOGLOBIN 29.1 PG (27.0-31.0); MEAN CORPUSCULAR HGB CONC 32.7 g/dL (33.0-36.5); MEAN CORPUSCULAR VOLUME 88.8 FL (78-98); MEAN PLATELET VOLUME 7.3 FL (7.4-10.4); MONOCYTES # (AUTO) 0.8 X10'3 (0-0.9); MONOCYTES % (AUTO) 9.2 % (2-12); NEUTROPHILS # (AUTO) 5.6 X10'3 (1.8-7.7); NEUTROPHILS % (AUTO) 63.4 % (42-75); PLATELET COUNT 286 X10'3 (140-440); RED BLOOD COUNT 4.04 X10'6 (4.20-5.60); RED CELL DISTRIBUTION WIDTH 13.7 % (11.5-14.5); WHITE BLOOD COUNT 8.8 X10'3 (4.5-11.0)
[2024-04-19 16:26] LABS: ALANINE AMINOTRANSFERASE 21 U/L (12-78); ALBUMIN 3.3 G/DL (3.4-5.0); ALBUMIN/GLOBULIN RATIO 0.8 (1.1-1.5); ALKALINE PHOSPHATASE 50 IU/L (46-116); ASPARTATE AMINO TRANSFERASE 19 U/L (10-37); BILIRUBIN,TOTAL 0.4 MG/DL (0.1-1.0); BLOOD UREA NITROGEN 30 MG/DL (7-18); BUN/CREATININE RATIO 29.4 (10.0-20.0); CALCIUM 9.1 MG/DL (8.5-10.1); CREATININE 1.02 MG/DL (0.40-0.90); GLUCOSE 105 MG/DL (70-104); POTASSIUM 4.7 MMOL/L (3.5-5.1); SODIUM 143 MMOL/L (135-145); TOTAL CARBON DIOXIDE 29.6 MMOL/L (24-32); TOTAL PROTEIN 7.5 G/DL (6.4-8.2); eCRCL 42 ML/MIN; eGFR 53 ML/MIN
[2024-04-19 16:33] LABS: PRO BRAIN NATRIURETIC PEPTIDE 875 PG/ML (0-125)
[2024-04-19 16:36] LABS: ANION GAP 9 (8-16); CHLORIDE 104 MMOL/L (99-107)
[2024-04-19] MEDS ORDERED: PALI234D IM (18:21)
[2024-04-19] MEDS ORDERED: potassium Cl 40MEQ/1/2NS 520ml 520 ML IV PRN (21:00)
[2024-04-19] MEDS ORDERED: potassium Cl 20 mEq SR tablet PO PRN ×2 (21:00)
[2024-04-19] MEDS ORDERED: magnesium hydroxide 30ml (MOM) UD suspension PO PRN (21:00)
[2024-04-19] MEDS ORDERED: magnesium sulf-water 2g/50mL 50 ML IV PRN (21:00)
[2024-04-19] MEDS ORDERED: ondansetron/PF 4mg/2ml inj IV PRN (21:00)
[2024-04-19] MEDS ORDERED: magnesium sulf-water 4G/100mL 100 ML IV PRN (21:00)
[2024-04-19] MEDS ORDERED: mag hydrox/Alum hydrox/simeth 30ml oral suspension PO PRN (21:00)
[2024-04-19] MEDS ORDERED: ipratropium/albuterol 3ml nebule NEB PRN (21:00)
[2024-04-19] MEDS ORDERED: magnesium Cl slow-release 64mg tablet PO PRN (21:00)
[2024-04-20 00:30] VITALS: BP 150/70; PULSE 74; RESP 15; TEMP 97.9; O2SAT 97
[2024-04-20] MEDS: acetaminophen 325mg tablet PO PRN (01:21)
[2024-04-20] MEDS: PERFLUTREN PROTEIN-A MICROSPHR (Optison) 0.22 MG/ML 3ML VIAL IV ONE (03:20)
[2024-04-20 04:20] VITALS: PULSE 74; RESP 16; O2SAT 97
[2024-04-20 06:00] VITALS: BP 125/59; PULSE 69; RESP 16; TEMP 97.9; O2SAT 97
[2024-04-20 06:33] LABS: BASOPHILS # (AUTO) 0.1 X10'3 (0-0.2); BASOPHILS % (AUTO) 1.2 % (0-1); EOSINOPHILS # (AUTO) 0.2 X10'3 (0-0.9); EOSINOPHILS % (AUTO) 2.5 % (0-6); HEMATOCRIT 33.9 % (35.0-45.0); HEMOGLOBIN 11.3 g/dl (12.0-16.0); LYMPHOCYTES # (AUTO) 2.3 X10'3 (1.1-4.8); LYMPHOCYTES % (AUTO) 31.9 % (21-51); MEAN CORPUSCULAR HEMOGLOBIN 29.7 PG (27.0-31.0); MEAN CORPUSCULAR HGB CONC 33.3 g/dL (33.0-36.5); MEAN CORPUSCULAR VOLUME 89.1 FL (78-98); MEAN PLATELET VOLUME 7.5 FL (7.4-10.4); MONOCYTES # (AUTO) 0.8 X10'3 (0-0.9); MONOCYTES % (AUTO) 10.8 % (2-12); NEUTROPHILS # (AUTO) 3.9 X10'3 (1.8-7.7); NEUTROPHILS % (AUTO) 53.6 % (42-75); PLATELET COUNT 261 X10'3 (140-440); RED BLOOD COUNT 3.81 X10'6 (4.20-5.60); RED CELL DISTRIBUTION WIDTH 13.7 % (11.5-14.5); WHITE BLOOD COUNT 7.2 X10'3 (4.5-11.0)
[2024-04-20 06:37] LABS: HEMOGLOBIN A1C 6.3 % (4.5-6.2)
[2024-04-20 06:57] LABS: ALBUMIN 2.8 G/DL (3.4-5.0); ANION GAP 9 (8-16); BLOOD UREA NITROGEN 26 MG/DL (7-18); BUN/CREATININE RATIO 28.3 (10.0-20.0); CHLORIDE 105 MMOL/L (99-107); CREATININE 0.92 MG/DL (0.40-0.90); GLUCOSE 99 MG/DL (70-104); MAGNESIUM 2.3 MG/DL (1.5-2.4); POTASSIUM 4.1 MMOL/L (3.5-5.1); SODIUM 140 MMOL/L (135-145); TOTAL CARBON DIOXIDE 26.5 MMOL/L (24-32); eCRCL 46 ML/MIN; eGFR 60 ML/MIN
[2024-04-20] MEDS: K and/or MAG REPLACEMENT MC SCH (08:00)
[2024-04-20] MEDS: docusate sod 100mg capsule PO SCH (09:29)
[2024-04-20 10:00] VITALS: BP 124/38; PULSE 72; RESP 18; TEMP 98.3; O2SAT 96
[2024-04-20] MEDS ORDERED: ALBU8HFA PO (12:45)
[2024-04-20] MEDS ORDERED: BUDE10.22 INH (12:45)
[2024-04-20 13:22] LABS: BILIRUBIN,URINE NEGATIVE (Neg); CLARITY,URINE CLEAR (Clear); COLOR,URINE YELLOW (Yellow); GLUCOSE, URINE NEGATIVE (Neg); KETONES,URINE NEGATIVE (Neg); LEUKOCYTE ESTERASE ,URINE NEGATIVE (Neg); NITRITES, URINE NEGATIVE (Neg); OCCULT BLOOD,URINE TRACE-INTACT (Neg); PROTEIN,URINE NEGATIVE (Neg); UROBILINOGEN,URINE 0.2 E.U/dL (0.2-1.0)
[2024-04-20 13:23] LABS: UA COLLECTION TYPE CLN CATCH MIDSTREAM
[2024-04-20 13:33] LABS: BACTERIA,URINE FEW /HPF (Neg); RBC,URINE 0-2 /HPF (0-2); SQUAMOUS EPITHELIAL CELL,UR FEW /LPF (FEW); WBC,URINE 0-4 /HPF (0-4)
[2024-04-20 14:00] LABS: URINE AMPHETAMINE SCREEN NEGATIVE (Neg); URINE BARBITUATE SCREEN NEGATIVE (Neg); URINE BENZODIAZEPINES SCREEN NEGATIVE (Neg); URINE CANNABINOID SCREEN POSITIVE (Neg); URINE COCAINE SCREEN NEGATIVE (Neg); URINE METHADONE SCREEN NEGATIVE (Neg); URINE OPIATE SCREEN NEGATIVE (Neg); URINE PHENCYCLIDINE SCREEN NEGATIVE (Neg)
[2024-04-20] MEDS ORDERED: enoxaparin 40mg/0.4ml syringe SQ SCH (20:00)
== END 2024-04-20 15:44 | disposition home health service (06) ==
LOC: ER 15:41 → ED HOLD 21:06 → ORTHO 4S 04-20 00:26
PROVIDERS: ADMIT Internal Medicine Critical Care Medicine; ATTEND Family Medicine
DX: J44.1 Chronic obstructive pulmonary disease with (acute) exacerbation (principal); Z20.822 Contact with and (suspected) exposure to COVID-19; R06.02 Shortness of breath; E11.9 Type 2 diabetes mellitus without complications; F20.3 Undifferentiated schizophrenia; R79.89 Other specified abnormal findings of blood chemistry; J06.9 Acute upper respiratory infection, unspecified; F03.93 Unspecified dementia, unspecified severity, with mood disturbance; F31.9 Bipolar disorder, unspecified; I10 Essential (primary) hypertension; F15.90 Other stimulant use, unspecified, uncomplicated; F17.210 Nicotine dependence, cigarettes, uncomplicated; Z79.899 Other long term (current) drug therapy; Z86.2 Personal history of diseases of the blood and blood-forming organs and certain disorders involving the immune mechanism; Z88.0 Allergy status to penicillin; Z91.040 Latex allergy status
CPT/HCPCS: 80048; 80053; 80305; 81001; 83036; 83735; 83880; 84484; 87502; 87503; 87811; 93005; 93306; 97161; 99285; G0378; 36415; 71045; 85025; 87081; 97116; 97530